=== PATIENT | female | born 1950 | race Caucasian/White ===

== ENCOUNTER → 2021-04-06 08:39 | Outpatient (CLI) | payer MEDICARE, OTHER | END | disposition home or self-care (01) | LOC: D.CT 08:39 | PROVIDERS: ATTEND Internal Medicine Cardiovascular Disease | DX: I70.1 Atherosclerosis of renal artery (principal); I10 Essential (primary) hypertension; I25.10 Atherosclerotic heart disease of native coronary artery without angina pectoris; R94.39 Abnormal result of other cardiovascular function study; R07.9 Chest pain, unspecified ==

== ENCOUNTER → 2021-04-07 08:32 | Outpatient (CLI) | payer MEDICARE, OTHER, MEDICAID | END | disposition home or self-care (01) | LOC: D.MRI 08:32 | PROVIDERS: ATTEND Family Medicine | DX: I67.1 Cerebral aneurysm, nonruptured (principal) ==

== ENCOUNTER 2021-04-28 09:43 | Inpatient (IN) | payer MEDICARE, OTHER, MEDICAID ==
[~2021-04-28] VITALS: Ht 162.6 cm; Wt 63.6 kg
--- NOTE | ~2021-04-28 | OP ---
PATIENT NAME: DEMETRIO MEDINA MEDICAL RECORD: [id number] :54 LOCATION:[id number] ADMISSION DATE:04/28/21 SURGEON: CLAUDE SUE MD DATE OF OPERATION: 04/28/2021 PREOPERATIVE DIAGNOSIS: Right bimalleolar ankle fracture/dislocation. POSTOPERATIVE DIAGNOSIS: Right bimalleolar ankle fracture/dislocation. PROCEDURE PERFORMED: ORIF right bimalleolar ankle fracture. INDICATIONS FOR THE PROCEDURE: Ms. Medina is a 70-year-old female who fell earlier today and injured her right ankle. She was getting up from her car when her dog pulled her by the leash and she fell, twisting her ankle. She complained of pain and inability to weightbear and was brought to [facility] where she was found to have a right bimalleolar ankle fracture dislocation. Closed reduction was performed in the Emergency Department and arrangements were made for her to come to the operating room today for operative repair. Risks, benefits and alternatives of surgery were discussed with the patient and consent was obtained. DESCRIPTION OF PROCEDURE: The patient was met in the holding area where her identity and confirmation of the procedure was performed. The right lower extremity was marked and she was taken to the operating room where she was placed supine on the operating table. Anesthesia was administered. A tourniquet was applied to the right leg and the right leg was prepped and draped in a sterile fashion. The patient received preoperative antibiotics and timeout was performed prior to initiating the case. On initiation of the case, the leg was exsanguinated and the tourniquet was raised. Total tourniquet time was 72 minutes. We began with fixation of the distal fibula. Incision was made along the posterior aspect of the distal fibula, dissecting down to the fascia over the peroneal tendons. The tissue was then incised along the posterior border of the fibula and then elevated from the fibula. Our fracture was identified and was debrided with suction and a dental pick. The fracture was then irrigated with saline. A lobster claw was used to obtain our reduction and a K-wire was placed to hold the fracture alignment. Alignment was confirmed under fluoroscopy. A posterior to anterior lag screw was then placed to compress the fracture. We then placed a 6-hole Jerrica distal fibular plate along the lateral aspect of the fibula and held this in place with K wires. Alignment was confirmed under fluoroscopy. We then placed a cortical screw just proximal to the fracture and a second locking screw proximal to that to hold the alignment of the plate. We then placed 4 locking screws distally using the drill guide. Two more locking screws were placed proximally to complete our fixation. Images were obtained that showed good alignment and fixation of the distal fibula. We then moved to the medial ankle. An incision was made over the medial malleolus. We dissected down through the skin and subcutaneous tissues to the medial periosteum and the fracture was easily identified. The periosteum was stripped into the fracture site. This tissue was debrided and the ankle was irrigated thoroughly with saline. Reduction was then obtained and held in place with a dental pick as our guidewire was placed for a cannulated screw. We confirmed its position and the fracture reduction and then placed a second guidewire using the parallel guide. These were measured and 2 partially threaded 55 mm 4.0 cannulated screws were placed and advanced down to securely fix the medial malleolus. Final images were obtained and showed good alignment and fixation of the bimalleolar ankle fracture. An external rotation stress test was performed OPERATIVE REPORT [id number] DEMETRIO MEDINA that did not show any evidence of medial widening. Wounds were irrigated thoroughly with saline. The deep tissues were closed with Vicryl and the skin was closed with nylon. A sterile dressing was placed. The patient was placed into a well-padded splint, turned back over to anesthesia where she was awakened and taken to recovery room in stable condition. POSTOPERATIVE PLAN: The patient is going to be admitted for routine postoperative care. She will receive 24 hours of postoperative antibiotics, will be started on DVT prophylaxis tomorrow. Physical therapy will be consulted to assist with mobilization, nonweightbearing right lower extremity. The patient will be able to return home or may require rehab depending on how she does with therapy. COMPLICATIONS: None. ESTIMATED BLOOD LOSS: 25 mL. ANESTHESIA: General with peripheral nerve block. TRANSINT:[id number] Voice Confirmation ID: [id number] DOCUMENT ID: [id number] CLAUDE SUE MD CC: [id number] DICTATION DATE: 04/28/212131 INTEGRATED CIRCUIT FABRICATOR: 04/28/212241 ADM IN [place] [id number] [place] [address]
[2021-04-28] MEDS ORDERED: CRESTOR20 MG PO (09:47)
[2021-04-28] MEDS ORDERED: METOPROLOL TART50 MG PO (09:47)
[2021-04-28 10:58] LABS: BASOPHILS 0.9 % (0-2); HEMATOCRIT 37.3 % (36.0-48.0); HEMOGLOBIN 12.4 g/dL (12-16); LYMPHOCYTES 14.9 % (15-50); MCH 30.5 pg (26.0-34.0); MCHC 33.1 g/dL (31.0-37.0); MCV 91.9 fL (80.0-100.0); MEAN PLATELET VOLUME 8.5 fL (7.4-10.4); MONOCYTES 5.6 % (2-11); NEUTROPHILS 76.6 % (40-80); PLATELET COUNT 144 10x3/uL (130-400); RBC 4.06 10x6/uL (4.00-5.40); RDW 16.3 % (11.5-14.5); WBC 6.2 10x3/uL (4.8-10.8)
[2021-04-28 11:15] LABS: CALCIUM 8.5 mg/dL (8.5-10.1); CARBON DIOXIDE 25.6 mmol/L (21.0-32.0); CREATININE - SERUM 1.3 mg/dL (0.6-1.3); POTASSIUM - SERUM 4.6 mmol/L (3.5-5.1)
[2021-04-28 11:21] LABS: ALBUMIN 3.7 g/dL (3.4-5.0); BILIRUBIN - TOTAL 0.43 mg/dL (0.2-1.3)
[2021-04-28 11:46] LABS: INR 1.06 (0.85-1.17); PROTIME 12.8 SECONDS (11.6-15.0)
--- NOTE | 2021-04-28 18:12 | NUR ---
NS STOPPED AT 1805
[2021-04-28 21:54] VITALS: BP 153/53
[2021-04-28 23:05] VITALS: BP 153/53; Ht 162.6 cm; Wt 63.6 kg
[2021-04-29] VITALS: BP 137/53
[2021-04-29 04:00] VITALS: BP 159/67
[2021-04-29 07:17] LABS: BASOPHILS 0.4 % (0-2); EOSINOPHILS 0 % (0-7); HEMATOCRIT 33.6 % (36.0-48.0); HEMOGLOBIN 11.3 g/dL (12-16); LYMPHOCYTES 9.5 % (15-50); MCH 30.8 pg (26.0-34.0); MCHC 33.7 g/dL (31.0-37.0); MCV 91.2 fL (80.0-100.0); MEAN PLATELET VOLUME 9.7 fL (7.4-10.4); MONOCYTES 3.8 % (2-11); NEUTROPHILS 86.3 % (40-80); PLATELET COUNT 131 10x3/uL (130-400); RBC 3.68 10x6/uL (4.00-5.40); RDW 16.3 % (11.5-14.5); WBC 5.6 10x3/uL (4.8-10.8)
[2021-04-29 07:53] LABS: ALBUMIN 3.2 g/dL (3.4-5.0); ANION GAP 13.7 mmol/L (8-16); BILIRUBIN - TOTAL 0.28 mg/dL (0.2-1.3); CALCIUM 8.3 mg/dL (8.5-10.1); CARBON DIOXIDE 23.7 mmol/L (21.0-32.0); CREATININE - SERUM 1.3 mg/dL (0.6-1.3); POTASSIUM - SERUM 4.4 mmol/L (3.5-5.1); PROTEIN - SERUM 6.2 g/dL (6.4-8.2)
--- NOTE | 2021-04-29 08:00 | NUR ---
PATIENT IN BED WITH IV INTACT. NO COMPLAINTS OR SIGNS OF DISTRESS. LLE SCD ON AND WORKING. RLE SPINT CLEAN DRY AND INTACT. FOOT WARM AND PEDAL PULSES PALAPABLE. CALL LIGHT WITHIN REACH.
[2021-04-29 09:39] VITALS: BP 151/58
[2021-04-29] MEDS ORDERED: COZAAR100 MG PO (13:18)
[2021-04-29] MEDS ORDERED: TRAZODONE HCL50 MG PO (13:19)
[2021-04-29 13:39] VITALS: BP 185/65
--- NOTE | 2021-04-29 14:00 | NUR ---
PATIENT STATED SHE IS WORRIED ABOUT HER FOOT BC SHE WAS ABLE TO MOVE HER TOES EARLIER AND THAT SHE ISNT ABLE TO NOW. FOOT STILL WARM AND PULSES WNL. CALLED DR. SUE AND NOTIFIED HIM. STATED RENÉE WAS COMING TO ROUND ON THE PATIENT. VERBALIZED UNDERSTANDING. CALL LIGHT WITHIN REACH.
[2021-04-29 18:13] VITALS: BP 157/61
--- NOTE | 2021-04-29 18:48 | NUR ---
PATIENT IV SALINE LOCKED. DOES NOT WANT TELEMETRY ON ANYMORE. STATED DR. SUE SAID SHE DIDNT HAVE TO WEAR IT ANYMORE. DR. MEYER STATED THAT PATIENTS LEG IS STILL NUMB BECAUSE OF THE BLOCK. THAT HE CHECKED HER AND SHE IS OK. NO NEW ORDERS AT THIS TIME. PATIENT SITTING ON THE SIDE OF THE BED WITH NO COMPLAINTS OR SIGNS OF DISTRESS. CALL LIGHT WITHIN REACH.
[2021-04-29 21:05] VITALS: BP 177/57
[2021-04-30 00:44] VITALS: BP 165/66
[2021-04-30 05:56] VITALS: BP 170/64
[2021-04-30 06:28] LABS: BASOPHILS 0.8 % (0-2); EOSINOPHILS 1.1 % (0-7); HEMATOCRIT 28.8 % (36.0-48.0); HEMOGLOBIN 9.8 g/dL (12-16); LYMPHOCYTES 30.4 % (15-50); MCH 30.6 pg (26.0-34.0); MCHC 33.9 g/dL (31.0-37.0); MCV 90.3 fL (80.0-100.0); MEAN PLATELET VOLUME 9.6 fL (7.4-10.4); MONOCYTES 8.4 % (2-11); NEUTROPHILS 59.3 % (40-80); PLATELET COUNT 121 10x3/uL (130-400); RBC 3.19 10x6/uL (4.00-5.40); RDW 16.3 % (11.5-14.5); WBC 5.2 10x3/uL (4.8-10.8)
[2021-04-30 06:43] LABS: BILIRUBIN - TOTAL 0.47 mg/dL (0.2-1.3); CALCIUM 7.9 mg/dL (8.5-10.1); CARBON DIOXIDE 25.5 mmol/L (21.0-32.0); CREATININE - SERUM 1.4 mg/dL (0.6-1.3); MAGNESIUM - SERUM 1.9 mg/dL (1.8-2.4); PROTEIN - SERUM 5.7 g/dL (6.4-8.2)
[2021-04-30 07:02] LABS: ANION GAP 10.2 mmol/L (8-16)
[2021-04-30 07:03] LABS: POTASSIUM - SERUM 3.7 mmol/L (3.5-5.1)
--- NOTE | 2021-04-30 07:47 | NUR ---
RECIEVED BEDSIDE REPORT. BED LOW POSITION, CALL LIGHT IN REACH. UP IN CHAIR. DENIES NEEDS AT THIS TIME. WANTS TO GO HOME. WILL CONTINUE TO MONITOR.
[2021-04-30 09:34] VITALS: BP 172/72
[2021-04-30] MEDS ORDERED: HYDROCODONE-AC1 EAC2 PO (13:16)
--- NOTE | 2021-04-30 14:09 | NUR ---
DISCHARGE PAPERS COMPLETE. IV CATH REMOVED, CATH TIP INTACT. DENIES FURTHER QUESTIONS. GATHERED BELONGINGS. LEFT UNIT VIA WHEELCHAIR TO HOME AT THIS TIME.
--- NOTE | 2021-04-30 19:23 | MORECARE ---
CASE MANAGEMENT DISCHARGE SUMMARY PATIENT: DEMETRIO MEDINA UNIT: [id number] ADM DATE: 04/28/21 AGE: 70 : 52 SEX: F ROOM/BED: D.2219 AUTHOR: SUREKHADOC PHYSICIAN: REFERRING PHYSICIAN: LIZET SANTILLAN MD DATE OF SERVICE: 04/30/21 Case Management Discharge Planning Summary COMMENTS ENTERED DATE: 04/30/21 19:09 CT COMMENT TYPE: Discharge Planning REVIEWER: Carlie Dougherty CM spoke with patient to complete discharge plan and discuss needs. Patient states she lives at home alone and is independent with all ADLs. Patient states her friend and neighbor, Alix will provide transportation after her discharge. Patient states she feels that it is safe to discharge home with no additional services. Patient states she will be able to pick and shovel man her medications at [facility] pharmacy on [address] after discharge and will be able to pay for them. Her home has running water and electricity. CM discussed availability of home health, rehab services, and medical equipment. Patient declined HHS, SNF, and IPR but does wish to receive a walker through [employer]. [facility] contacted and will deliver walker to patient's room before discharge. CM will continue to follow and assist as needed. DCP REVIEW SUMMARY ANTICIPATED D/C DATE: EXPECTED LOS : CASE STATUS: DCP Complete INITIAL REVIEW: 04/28/2021 INITIAL REVIEWER: Carlie Dougherty FINAL DISCHARGE DISPOSITION: : FINAL REVIEWER: Carlie Dougherty FINAL REVIEW DATE: DCP Focus Questions & Answers DCP Screen QUESTION: ANSWER High Risk Factors: : None Walking limitation: Patient stated self rated walking limitation present? : Yes Age: : 67 - 81 Prior living environment: : Lives Alone Disability ranking: : Grade 2: Slight disability DCP Evaluation QUESTION: ANSWER Patient's ability to cope with chronic illness : a. Adequate (0-3 ED visits in 6 mos., adequate financial resources, attends scheduled appts.) Patient's current cognitive status: : *Oriented to person, place, situation, time and present Patient's current cognitive status: : Alert Family / Caregiver's ability to cope with chronic illness: : a. Adequate (ability to meet patient's medical needs, ensures patient attends medical appts.) Patient and/or caregiver agree upon recommended discharge plan? : Yes Physical Status: : Mobility impaired Family / Caregiver's ability to cope with chronic illness: : a. Adequate (ability to meet patient's medical needs, ensures patient attends medical appts.) Functional screen assessment: : Other Does the patient have the ability to pay for or attain post discharge needs / services? : Yes Partial Dependence, assistance required for: : Ambulation / Mobility Living Arrangements: : Home Alone with Support Functional screen comments: : NWB on LLE Is there a likelihood that the patient will require additional services to return to the preadmission environment? : No Equipment needed for post hospitalization: : Walker - Rolling Baseline cognitive status: : *Oriented to person, place, situation, time and present Baseline cognitive status: : Alert Living arrangements comments: : Home alone with support from family, friends , adventism and neighbors Patient with capacity for self-care or can be cared for in same environment as prior to hospitalization? : Yes Results of this evaluation have been discussed with: : Patient Facility / Agency name and contact information from Question 3 (if applicable): : [employer] provided walker Physical environment modification needed / anticipated for discharge: : No Medication Management: : Patient states can afford medications Pharmacy name(s): : [facility] Planned post hospital services available for patient? : N/A Does Patient have transportation to get home and to follow-up medical appointments when discharged from the hospital? : Yes Planned post hospital services covered by insurance plan? : N/A Would patient like to participate in any Care Coordination programs (if applicable): : Not applicable Does the patient have electricity at home? : Yes Does the patient have running water in their house? : Yes Equipment in use: : Walker - Rolling Other Equipment comments: : [employer] will supply walker Equipment agency name and contact information: : [employer] Mental health screen: : No mental health history DCP Re-evaluation QUESTION: ANSWER Would patient like to participate in any Care Coordination programs (if applicable): : Not applicable PATIENT: DEMETRIO MEDINA ENCOUNTER: [id number] MEDICAL RECORD#: [id number] ADMISSION DATE: 04/28/2021 DISCHARGE DATE: 04/30/2021 ATTENDING MD: JHONATHAN: AGE: 70 MARITAL STATUS: S DC PLAN ID: [id number] FACILITY: [facility] PRINTED ON: 04/30/21 19:22 CT All edits/amendments must be made on the electronic document DICTATION DATE: 04/30/211921 IT DISASTER RECOVERY MANAGER: COURT 04/30/211921 RPT#: [id number] DC DATE:04/30/21 STATUS: DIS IN [facility] [address] [place] [address] END OF REPORT
== END 2021-04-30 14:10 | disposition home or self-care (01) | DRG 494 ==
LOC: D.ER 09:43 → D.EDHOLD 12:20 → OBSVTIME 12:20 → D.EDHOLD 12:20 → D.MS 18:18
PROVIDERS: Family Medicine; Orthopaedic Surgery; ADMIT Family Medicine; ATTEND Family Medicine
PROC: 0QSJ04Z Reposition Right Fibula with Internal Fixation Device, Open Approach (ICD-10-PCS; principal; 2021-04-28 16:00)
DX: S82.841A Displaced bimalleolar fracture of right lower leg, initial encounter for closed fracture (principal); I10 Essential (primary) hypertension; I25.10 Atherosclerotic heart disease of native coronary artery without angina pectoris; W19.XXXA Unspecified fall, initial encounter; Z72.0 Tobacco use